=== PATIENT | female | born 1990 | race Caucasian/White ===

== ENCOUNTER → 2016-12-25 | Outpatient (CLI) | payer OTHER ==
[~2016-12-25] MED LIST: CAMILA0.35 MG PO; XARELTO20 MG PO
== END ==
LOC: COL.VAS 13:06
DX: I82.411 Acute embolism and thrombosis of right femoral vein (principal); I82.491 Acute embolism and thrombosis of other specified deep vein of right lower extremity; R79.89 Other specified abnormal findings of blood chemistry

== ENCOUNTER → 2016-12-25 | Outpatient (CLI) | payer OTHER | LOC: COL.LAB 09:45 | DX: M79.661 Pain in right lower leg (principal) ==

== ENCOUNTER 2017-01-03 12:33 | Emergency (ER) | payer OTHER ==
[~2017-01-03] VITALS: Ht 167.6 cm; Wt 109.1 kg
[2017-01-03 12:34] VITALS: TEMP 99.7
[2017-01-03] MEDS ORDERED: XARELTO20 MG PO (12:49)
[2017-01-03] MEDS ORDERED: CAMILA0.35 MG PO (13:24)
[2017-01-03 13:25] LABS: HEMOGLOBIN 12.4 g/dl (12.5-16.0)
[2017-01-03 13:30] LABS: HEMATOCRIT 36.3 % (37.0-47.0)
[2017-01-03 14:32] VITALS: BP 146/78; PULSE 82
== END 2017-01-03 14:34 | disposition home or self-care (01) ==
LOC: COL.ER 12:33
PROVIDERS: Physician Assistant
DX: N93.8 Other specified abnormal uterine and vaginal bleeding (principal); Z86.718 Personal history of other venous thrombosis and embolism; Z79.01 Long term (current) use of anticoagulants

== ENCOUNTER 2017-09-07 12:09 | Emergency (ER) | payer OTHER ==
[~2017-09-07] VITALS: Ht 167.6 cm; Wt 122.7 kg
[2017-09-07 12:11] VITALS: BP 178/88; TEMP 99.3
[2017-09-07] MEDS ORDERED: TOPAMAX50 MG PO (14:30)
[2017-09-07] MEDS ORDERED: ADIPEX-P37.5 MG PO (14:30)
[2017-09-07] MEDS ORDERED: LEXAPRO20 MG PO (14:31)
[2017-09-07] MEDS ORDERED: ASPIRIN 81M81 MG/TA2 PO (14:31)
[2017-09-07 16:08] VITALS: PULSE 71
== END 2017-09-07 16:09 | disposition home or self-care (01) ==
LOC: COL.ER 12:09
DX: R20.0 Anesthesia of skin (principal); Z86.718 Personal history of other venous thrombosis and embolism; Z79.82 Long term (current) use of aspirin